=== PATIENT | male | born 1990 ===

== ENCOUNTER 2017-06-18 03:31 | Emergency (ER) | payer SELFPAY ==
[2017-06-18 03:48] VITALS: BMI 25.8
--- NOTE | 2017-06-18 04:16 | ED PDOC ---
HPI: Psych/Substance Abuse Time Seen by Provider: 06/18/17 03:45 Chief Complaint (Nursing): Psychiatric Evaluation Chief Complaint (Provider): ETOH Intoxication History Per: EMS History/Exam Limitations: intoxication Onset/Duration Of Symptoms: Mins (Just prior to arrival) Current Symptoms Are (Timing): Still Present Associated Symptoms: Anger Involuntary Hold By: Local Law Enforcement Additional Complaint(s): Ramos Bautista is a 27 y/o male, brought in by EMS and [place] police, with a chief complaint of alcohol intoxication, with an onset just prior to arrival. Due to the patient's aggravated and uncooperative state, past medical, surgical, family, and social history as well as the review of systems were unable to be obtained. Of note, the patient was physically and verbally threatening to the staff and needed to be 4 point restrained because he was uncooperative and posed a high risk for harm to staff and himself. Past Medical History Reviewed: Unable To Obtain - Family History Family History: States: Unknown Family Hx - Allergies Allergies/Adverse Reactions: Allergies Allergy/AdvReac Type Severity Reaction Status Date / Time No Known Allergies Allergy Verified 03/24/14 04:46 Review of Systems ROS Statement: Except As Marked, All Systems Reviewed And Found Negative Review Of Systems: ROS cannot be obtained secondary to pt's inabilty to answer questions. Physical Exam - Reviewed Nursing Documentation Reviewed: Yes Vital Signs Reviewed: Yes - Physical Exam Appears: Positive for: Non-toxic, No Acute Distress Head Exam: Positive for: ATRAUMATIC, NORMOCEPHALIC Skin: Positive for: Normal Color, Warm Eye Exam: Positive for: Normal appearance, EOMI, PERRL Neck: Positive for: Normal, Painless ROM, Supple Cardiovascular/Chest: Positive for: Regular Rate, Rhythm. Negative for: Murmur Respiratory: Positive for: Normal Breath Sounds. Negative for: Respiratory Distress Gastrointestinal/Abdominal: Positive for: Normal Exam, Soft. Negative for: Tenderness Extremity: Positive for: Normal ROM. Negative for: Pedal Edema, Deformity Neurologic/Psych: Positive for: Alert (but aggravated). Negative for: Oriented - Laboratory Results Result Diagrams: 06/18/17 04:18 06/18/17 04:18 - Critical Care Total Time (In Min): 30 Medical Decision Making Medical Decision Making: Time: --03:48 Impression: --27 y/o male with Alcohol intoxication Plan: --drug screen --ED UDip --Haldol 5m IM --Lorazepmam 2mg IM --1:1 Observation --Accucheck --Restraint; Violent or harm to self/other --urinalysis Reassess --time: 07:00 Patient to be signed out to Dr. Gordon pending clinical sobriety and reevaluation. Scribe Attestation: Documented by Manjinder Guadarrama acting as a scribe for Basil Yip MD. Provider Attestation: All medical record entries made by the Scribe were at my direction and personally dictated by me. I have reviewed the chart and agree that the record accurately reflects my personal performance of the history, physical exam, medical decision making, and the department course for this patient. I have also personally directed, reviewed, and agree with the discharge instructions and disposition. Disposition - Clinical Impression Clinical Impression: Alcohol abuse with intoxication - Patient ED Disposition Is Patient to be Admitted: Transfer of Care - Disposition Disposition: Transfer of Care Disposition Time: 07:00 (Patient signed out to Dr. Gordon pending clinical sobriety and reevaluation.) Condition: FAIR Instructions: Alcohol Intoxication (ED) Forms: [facility] ([place]) Patient Signed Over To: Ashlee Gordon
[2017-06-18 04:21] LABS: BASO # 0.1 K/uL (0.0-0.2); BASO % 1.2 % (0.0-2.0); EOS # 0.2 K/uL (0.0-0.7); EOS % 2.5 % (0.0-4.0); HEMATOCRIT 48.1 % (35.0-51.0); LYMPH # 3.2 K/uL (1.0-4.3); LYMPH % 34.2 % (20.0-40.0); MEAN CELL VOLUME 88.5 fl (80.0-94.0); MEAN CORPUSCULAR HGB CONC 33.9 g/dL (33.0-37.0); MEAN PLATELET VOLUME 8.2 fl (7.2-11.7); MONO # 0.7 K/uL (0.0-0.8); MONO % 7.9 % (0.0-10.0); NEUT # 5.1 K/uL (1.8-7.0); NEUT % 54.2 % (50.0-75.0); NRBC % 0.1 % (0.0-0.0); RED CELL DISTRIBUTION WIDTH 13.2 % (11.5-14.5); WHITE BLOOD COUNT 9.3 K/uL (4.8-10.8)
[2017-06-18 04:28] LABS: ALB/GLOB RATIO 1.3 (1.0-2.1); ALCOHOL SERUM 293 mg/dl (0-10); ALKALINE PHOSPHATASE 91 U/L (38-126); ALT/SGPT 81 U/L (21-72); AST/SGOT 49 U/L (17-59); BILIRUBIN,TOTAL 0.3 mg/dl (0.2-1.3); BLOOD UREA NITROGEN 14 mg/dl (9-20); CARBON DIOXIDE 21 mmol/L (22-30); CHLORIDE 107 mmol/L (98-107); GFR AFRICAN-AMERICAN > 60; GLUCOSE,RANDOM 112 mg/dL (75-110); POTASSIUM 3.4 MMOL/L (3.6-5.0); SODIUM 145 mmol/l (132-148); TOTAL PROTEIN 8.6 G/DL (6.3-8.2)
--- NOTE | 2017-06-18 06:46 | ED PDOC ---
- Laboratory Results Result Diagrams: 06/18/17 04:18 06/18/17 04:18 - ECG O2 Sat by Pulse Oximetry: 95 Medical Decision Making Medical Decision Making: time: 07:00 Patient signed out to me by Dr. Basil Yip pending clinical sobriety and reevaluation. Time: Impression: Plan: Reassess Scribe Attestation: Documented by Manjinder Guadarrama acting as a scribe for MD. Provider Attestation: All medical record entries made by the Scribe were at my direction and personally dictated by me. I have reviewed the chart and agree that the record accurately reflects my personal performance of the history, physical exam, medical decision making, and the department course for this patient. I have also personally directed, reviewed, and agree with the discharge instructions and disposition. patient awoke. ambulated without complaints or difficulty. will discharge. Disposition Doctor Will See Patient In The: Office Counseled Patient/Family Regarding: Diagnosis, Need For Followup, Rx Given - Clinical Impression Clinical Impression: Alcohol abuse with intoxication - POA Present On Arrival: None - Disposition Disposition: Routine/Home Disposition Time: 10:00 Condition: FAIR Instructions: Alcohol Intoxication (ED) Forms: [facility] ([place])
[2017-06-18 11:56] VITALS: BP 124/76; PULSE 87; RESP 18; TEMP 98; O2SAT 100
[2017-06-18 12:15] LABS: RBC URINE 1 /hpf (0-3); URINE BACTERIA RARE (<OCC); URINE BILIRUBIN NEGATIVE (NEGATIVE); URINE BLOOD NEGATIVE (NEGATIVE); URINE COLOR YELLOW (YELLOW); URINE GLUCOSE (UA) NEG (Normal); URINE KETONE NEGATIVE (NEGATIVE); URINE LEUKOCYTE ESTERASE NEG Leu/uL (Negative); URINE PROTEIN NEGATIVE (NEGATIVE); URINE UROBILINOGEN 0.2-1.0 mg/dL (0.2-1.0); WBC URINE 1 /hpf (0-5)
== END 2017-06-18 10:45 | disposition home or self-care (01) ==
LOC: H.ER 03:31
DX: F10.129 Alcohol abuse with intoxication, unspecified (principal)
CPT/HCPCS: 80053; 81003; 82948; 85025; 96372; 99283; G0480; J1630; J2060